=== PATIENT | female | born 1945 | race Caucasian/White ===

== ENCOUNTER 2019-10-23 18:11 | Emergency (ER) | payer OTHER ==
[~2019-10-23] VITALS: Ht 157.5 cm; Wt 54.4 kg
[2019-10-23] MEDS ORDERED: SYNTHROID (18:29)
[2019-10-23] MEDS ORDERED: PERCOCET 5-3251 EACH PO (22:15)
[2019-10-23] MEDS ORDERED: DOUBLE ANTIBIOT14 G1 TD (22:15)
== END 2019-10-23 22:51 | disposition home or self-care (01) ==
LOC: ER 18:11
DX: S52.025A Nondisplaced fracture of olecranon process without intraarticular extension of left ulna, initial encounter for closed fracture (principal); S51.022A Laceration with foreign body of left elbow, initial encounter; S00.81XA Abrasion of other part of head, initial encounter; S60.011A Contusion of right thumb without damage to nail, initial encounter; S70.02XA Contusion of left hip, initial encounter; R03.0 Elevated blood-pressure reading, without diagnosis of hypertension; W10.8XXA Fall (on) (from) other stairs and steps, initial encounter; Y93.89 Activity, other specified; Y92.098 Other place in other non-institutional residence as the place of occurrence of the external cause; Y99.8 Other external cause status

== ENCOUNTER → 2020-05-03 | Outpatient (CLI) | payer OTHER ==
[~2020-05-03] MED LIST: DOUBLE ANTIBIOT14 G1 TD; PERCOCET 5-3251 EACH PO; SYNTHROID
== END | disposition home or self-care (01) ==
LOC: PPH VACUNA
PROVIDERS: ATTEND Emergency Medicine Pediatric Emergency Medicine
DX: Z23 Encounter for immunization (principal)

== ENCOUNTER 2020-05-23 13:22 | Outpatient (CLI) | payer OTHER | END 2020-05-23 13:23 | disposition home or self-care (01) | LOC: PPH VACUNA 13:22 | PROVIDERS: ATTEND Emergency Medicine Pediatric Emergency Medicine | DX: Z23 Encounter for immunization (principal) ==

== ENCOUNTER 2023-10-03 21:03 | Emergency (ER) | payer OTHER ==
[~2023-10-03] VITALS: Ht 157.5 cm; Wt 56.2 kg
[2023-10-03] MEDS ORDERED: COZAAR50 MG PO (21:37)
[2023-10-03] MEDS ORDERED: NASAL MIST126 ML (21:37)
[2023-10-03] MEDS ORDERED: ROSUVASTATIN CAL5 MG (21:38)
[2023-10-03] MEDS ORDERED: LEVOTHYROXINE50 MCG PO (21:39)
[2023-10-03] MEDS ORDERED: CLONIDINE HCL 0.1 MG TABLET PO ONE ×2 (22:00→22:02)
[2023-10-03] MEDS ORDERED: LIDOCAINE HCL 1% 10ML VIAL ONE (23:08)
[2023-10-03 23:20] LABS: HEMATOCRIT 35.1 % (36.0-45.00); HEMOGLOBIN 11.8 g/dL (12.0-15.00); MEAN CELL VOLUME 91.2 fL (80.00-100.00); MEAN CORPUSCULAR HEMOGLOBIN 30.8 pg (27.00-32.0); MEAN CORPUSCULAR HGB CONC 33.7 g/dl (32.0-36.0); PLATELET COUNT 276 K/uL (150-450); RED BLOOD COUNT 3.85 M/uL (4.00-6.00); RED CELL DISTRIBUTION WIDTH 14.4 % (11.5-14.5)
[2023-10-03 23:36] LABS: CREATININE SERUM 0.83 mg/dL (0.55-1.02); GFR 66.14; POTASSIUM 4.62 mEq/L (3.5-5.1)
== END 2023-10-03 23:47 | disposition home or self-care (01) ==
LOC: ER 21:04
PROVIDERS: General Practice
DX: I10 Essential (primary) hypertension (principal)